=== PATIENT | male | born 1940 | race Caucasian/White ===

== ENCOUNTER 2018-12-15 10:08 | Day surgery (SDC) | payer MEDICARE, OTHER ==
[~2018-12-15] VITALS: Ht 170.2 cm; Wt 94.4 kg
[2018-12-15] VITALS (14 sets, daily range): BP systolic 105–185; BP diastolic 67–118; PULSE 53–94; TEMP 97.6–98.7
[2018-12-15] MEDS ORDERED: NORVASC 10MG10 MG PO (10:35)
[2018-12-15] MEDS ORDERED: LIPITOR 10MG10 MG PO (10:36)
[2018-12-15] MEDS ORDERED: MULTIPLE VITAMI1 TA5 PO (10:36)
[2018-12-15] MEDS ORDERED: TOPROL XL100 MG PO (10:36)
[2018-12-15] MEDS ORDERED: VITAMIN B COMPL1 SGL PO (10:37)
[2018-12-15] MEDS ORDERED: CALCIUM CARBON650 M2 PO (10:37)
[2018-12-15] MEDS ORDERED: GARLIC100 MG PO (10:37)
[2018-12-15] MEDS ORDERED: PHARMASSURE ZIN50 MG PO (10:38)
[2018-12-15 10:54] LABS: HEMATOCRIT 51.5 % (42.0-52.0); HEMOGLOBIN 17.4 g/dl (13.5-18.0); MEAN CELL VOLUME 90 fl (80.0-100.0); MEAN CORPUSCULAR HEMOGLOBIN 30 pg (27.0-31.0); MEAN CORPUSCULAR HGB CONC 34 g/dl (33.0-37.0); MEAN PLATELET VOLUME 10.3 fl (7.4-10.4); PLATELET COUNT 173 K/mm3 (130-400); RED BLOOD COUNT 5.72 M/mm3 (4.20-5.60); REDCELL DISTRIBUTION WIDTH-CV 14.3 % (11.5-14.5)
[2018-12-15 10:59] LABS: PROTHROMBIN TIME 11.2 SECONDS (9.7-12.8)
[2018-12-15 11:10] LABS: CALCIUM 9.2 mg/dL (8.4-10.2); CREATININE, serum 1.62 (0.66-1.25)
--- NOTE | 2018-12-15 11:14 | NUR ---
Pt arrived to express room 12. He is awake and A/Ox4. Meds/allergies/pharm reviewed. #20 started in left hand. VS and weight obtained.
--- NOTE | 2018-12-15 11:39 | NUR ---
Pt to medical lab specialist at this time
--- NOTE | 2018-12-15 11:48 | NUR ---
PLEASE SEE MERGE FOR MEDICATION ADMINISTRATION TIME, SEDATION ASSESSMENT DATA DURING AND POST PROCEDURE, PULSES STRONG RIGHT RADIAL PREPPED.
--- NOTE | 2018-12-15 13:21 | NUR ---
Pt arrived to room 305 at this time. He is A/O x3. He is very hard of hearing but answers questions appropriately. He denies any pain at this time. Band to R wrist inflated, small amount of blood present, pulses strong. Pt denies any SOB. No N/V. POC discussed with patient who verbalizes understanding. Pt denies any needs at this time. Will continue to monitor.
--- NOTE | 2018-12-15 17:20 | NUR ---
5 mls let out from R radial band. No bleeding visualized at this time. Pt upset, stating he pressed his call light and spoke with personel three times stating he is SOB. Pt states he has asthma and uses an Albuterol inhaler. Reassurance given to patient, who states he is no longer feeling SOB. He denies any pain. VSS. Will continue to monitor.
[2018-12-15] MEDS ORDERED: PROAIR HFA0.09 MG/AC IH (17:25)
--- NOTE | 2018-12-15 17:45 | NUR ---
5mls released from band, no bleeding visualized.
--- NOTE | 2018-12-15 19:09 | NUR ---
Last 5mls released from R radial band, no bleeding visualized. Pt denies any pain. Eating dinner at this time. Report given to JANEL Cardona. Call light within reach.
--- NOTE | 2018-12-15 21:12 | NUR ---
Resting in bed. Assessment complete. Lungs clear. Heart sounds normal. Bowels active x4. Pulses strong throughout. Bilateral lower leg edema +1. Radial band removed at this time. No signs of bleeding. Denies any pain or shortness of breath. Denies needs at this time. Will closely monitor.
--- NOTE | 2018-12-15 22:38 | NUR ---
Resting in bed asleep. Call light in reach.
[2018-12-16 00:06] VITALS: PULSE 78; TEMP 97.6
[2018-12-16 03:07] VITALS: BP 136/85; PULSE 71; TEMP 97.8
--- NOTE | 2018-12-16 04:09 | NUR ---
Resting in bed. Right radial site without complications.
[2018-12-16 04:12] VITALS: BP 136/85; PULSE 71; TEMP 97.8
--- NOTE | 2018-12-16 06:52 | NUR ---
RECEIVED REPORT FROM JANEL PUENTE.
--- NOTE | 2018-12-16 07:02 | NUR ---
Report given to JANEL Lanier. Resting in bed. Had uneventful night. Call light in reach.
[2018-12-16 07:25] VITALS: BP 176/81; PULSE 66; TEMP 97.6
[2018-12-16] MEDS ORDERED: BRILINTA90 MG PO (09:23)
[2018-12-16] MEDS ORDERED: LIPITOR 10MG10 MG PO (09:24)
[2018-12-16] MEDS ORDERED: ASPIRIN E.C. 8181 MG PO (09:24)
[2018-12-16] MEDS ORDERED: COREG 6.256.25 MG/TA PO (09:25)
--- NOTE | 2018-12-16 09:37 | NUR ---
Assessment complete.patient awake,a/ox3.LSCTA.breathing even and unlabored.denies pain or discomfort at this time.VSS.right radial site is CDI.pt telemetry is sinus rythm with HR in 66.all meds given.no other needs voiced at this time.will continue to monnitor.call light in reach
--- NOTE | 2018-12-16 11:58 | NUR ---
pt discharge home at this time.all discharge instructions reviewed.stent card given to patient.new meds reviewed.pt voiced understanding.iv and telemetry reviewed.all questions answered.Rick,patient's friend here to transport home. staff escorted patient out.
--- NOTE | 2018-12-16 14:48 | NUR ---
SW unable to meet with patient before discharge.
== END 2018-12-16 12:08 | disposition home or self-care (01) ==
LOC: COL.CAR 10:08 → MEDICAL 13:34 → COL.CAR 12-16 12:08
PROVIDERS: Internal Medicine Cardiovascular Disease
DX: I25.10 Atherosclerotic heart disease of native coronary artery without angina pectoris (principal); I12.9 Hypertensive chronic kidney disease with stage 1 through stage 4 chronic kidney disease, or unspecified chronic kidney disease; N18.6 End stage renal disease; E78.5 Hyperlipidemia, unspecified; E66.9 Obesity, unspecified; R73.03 Prediabetes; Z87.891 Personal history of nicotine dependence
CPT/HCPCS: OP; C1725; C1769; C1874; C1887; C9600; J1644; J2250; J3010; J7030; Q9967